=== PATIENT | female | born 1950 | race Caucasian/White ===

== ENCOUNTER 2020-04-14 09:03 | Day surgery (SDC) | payer MEDICARE, OTHER ==
[~2020-04-14] VITALS: Ht 167.6 cm; Wt 105.7 kg
[~2020-04-14 09:03] MED LIST: ADVIL200 MG PO; B COMPLEX1 EACH PO; BIOTIN5 MG PO; BOSWELLIA SERRAT1 GM MISC; CALCIUM600 MG PO; CARVEDILOL12.5 MG PO; DOXYCYCLINE HY100 MG PO; L-LYSINE500 M2 PO; LEVOTHYROXINE88 MCG PO; PEPCID20 MG PO; VITA-C120 GM PO; VITAMIN D325 MC3 PO
--- NOTE | 2020-04-14 11:00 | NUR ---
04/14/20 1100 Jessica Jenkins 1056-PATIENT ARRIVED TO PACU ON 2L NC AWAKE RR EVEN. DENIES PAIN OR NAUSEA. PASSING GAS. ABDOMEN SOFT LAYING LEFT LATERAL. IVF INFUSING.
--- NOTE | 2020-04-15 08:10 | OR ---
[facility] [address] [place], [place] [address] Signed DATE OF OPERATION: 04/14/2020 SURGEON: Venancio Estevez MD PREOPERATIVE DIAGNOSES: 1. Father with colonic polyps, age 55. 2. Brother with colonic polyps in his late 50s or early 60s. 3. A great-niece with rectal cancer, age 20. POSTOPERATIVE DIAGNOSES: 1. A 4 mm polyp at 20 cm. 2. Minimal sigmoid diverticulosis. 3. Minimal internal hemorrhoids. PROCEDURE: Colonoscopy without biopsy. ESTIMATED BLOOD LOSS: None. INDICATIONS: Isaac is a 70-year-old female asked to see me for a followup colonoscopy. She spoke of a negative colonoscopy back at age 51. She mentioned her dad had colonic polyps around age 55. A brother had colonic polyps removed somewhere in his late 50s or early 60s. She talked about her sister's granddaughter having rectal cancer at age 20. This would be her great niece. In the meantime, Isaac has no lower GI complaints. In the office, I gave her a pamphlet on colonoscopy and we looked at that together in detail. She understands the nature of the test along with the risks including, but not limited to gas bloating, crampy abdominal pain, bleeding, perforation requiring surgery, and missed diagnosis. She also understands the need for IV conscious sedation, she had expressed understanding and wished to proceed. DESCRIPTION OF PROCEDURE: Isaac was taken into our endoscopy suite and placed in the left lateral decubitus position. She was given IV sedation with 5 mg of Versed and 150 mcg of fentanyl. A digital rectal exam was performed and this was unremarkable. The adult colonoscope was introduced and advanced all around into the cecum under direct visualization of camera without difficulty. Her prep was good. We could easily see the appendiceal orifice and the ileocecal valve. The scope was slowly withdrawn. She had a few diverticula in the sigmoid colon. They were small to moderate in size, few in number, and scattered about. Electronically Signed By: VENANCIO ESTEVEZ MD 04/15/20 0810 PATIENT NAME: ISAAC CARRASQUILLO OPERATIVE REPORT DATE OF : 52 REPORT #: [id number] PHYSICIAN: VENANCIO ESTEVEZ MD PCP: DEBBIE MESA MD REPORT IS CONFIDENTIAL AND NOT TO BE RELEASED WITHOUT AUTHORIZATION [facility] [address] [place], [place] [address] Signed We saw a polypoid lesion at around 22 cm. It was easily removed with hot biopsy forceps. Upon retroflexion of scope, she has some very tiny internal hemorrhoid tissue. After this, the gas was suctioned out and the colonoscope removed. Isaac tolerated the procedure quite well. RECOMMENDATIONS: I will see Isaac back in my office in 7 to 14 days to review her results. She can withhold aspirin and NSAIDs for 1 week. She can resume her other chronic medications today. She will stay on the 5-year rotation given her family. Venancio Estevez MD ALB/MODL /[id number] cc: MD Debbie Anglin MD Copies: VENANCIO ESTEVEZ MD, JONATHAN MD ~ Electronically Signed By: VENANCIO ESTEVEZ MD 04/15/20 0810 PATIENT NAME: ISAAC CARRASQUILLO RADU OPERATIVE REPORT DATE OF : 52 REPORT #: [id number] PHYSICIAN: VENANCIO ESTEVEZ MD PCP: DEBBIE MESA MD REPORT IS CONFIDENTIAL AND NOT TO BE RELEASED WITHOUT AUTHORIZATION
--- NOTE | 2020-04-16 13:35 | PATH ---
[facility] [address] [place], [place] [address] Signed SPECIMEN(S): A COLON POLYP AT 22 CM SPECIMEN SOURCE: A. COLON POLYP AT 22 CM CLINICAL HISTORY: Family history colon polyps. MICROSCOPIC DESCRIPTION: Histologic sections of all submitted blocks are examined by light microscopy. These findings, together with the gross examination, support the pathologic diagnosis. FINAL PATHOLOGIC DIAGNOSIS: Colon polyp at 22 cm: - Tubular adenoma (one fragment). JVR:emb:C2NR GROSS DESCRIPTION: The specimen, labeled "CM, 1," and designated on the requisition "colon polyp at 22 cm," is received in formalin and consists of two gaytan soft tissue fragment(s) that measure 0.2 cm in greatest dimension. The specimen is entirely submitted in cassette (A1). AT (under the direct supervision of a pathologist) The Gross Description was prepared using a voice recognition system. The report was reviewed for accuracy; however, sound-alike word errors, addition and/or deletions may occur. If there is any question about this report, please contact Client Services. PERFORMING LABORATORY: The technical component was performed by [facility], [address] [place] [address] (Hooker Machine Tender: Sophia Carroll MD; CLIA# [id number]). Professional interpretation [place] [address] (Hooker Machine Tender: Kyle Strickland M.D.). Diagnostician: Kyle Strickland MD Pathologist Electronically Signed 04/16/2020 Copies: PATIENT NAME: ISAAC CARRASQUILLO RADU PATHOLOGY DATE OF : 52 REPORT #: [id number] PHYSICIAN: [facility] PCP: DEBBIE MESA MD REPORT IS CONFIDENTIAL AND NOT TO BE RELEASED WITHOUT AUTHORIZATION [address] [place], [place] [address] Signed ~ PATIENT NAME: ISAAC CARRSAQUILLO RADU PATHOLOGY DATE OF : 52 REPORT #: [id number] PHYSICIAN: [facility] PCP: DEBBIE MESA MD REPORT IS CONFIDENTIAL AND NOT TO BE RELEASED WITHOUT AUTHORIZATION
== END 2020-04-14 11:40 | disposition home or self-care (01) ==
LOC: OPS 09:03 → DS 09:12 → OPS 10:00
PROVIDERS: Colon & Rectal Surgery
PROC: 0DBE8ZZ Excision of Large Intestine, Via Natural or Artificial Opening Endoscopic (ICD-10-PCS; principal; 2020-04-14 10:30)
DX: Z12.11 Encounter for screening for malignant neoplasm of colon (principal); D12.6 Benign neoplasm of colon, unspecified; K64.8 Other hemorrhoids; K57.30 Diverticulosis of large intestine without perforation or abscess without bleeding; Z83.71 Family history of colonic polyps
CPT/HCPCS: 88305; 99153; G0500; J2250; J3010; J7121

== ENCOUNTER 2022-05-02 08:37 | Emergency (ER) | payer MEDICARE, OTHER ==
[~2022-05-02] VITALS: Ht 167.6 cm; Wt 106.6 kg
[~2022-05-02 08:37] MED LIST changes: +ACETAMINOPHEN325 M1 PO; +ASPIRIN EC325 MG PO; +BIOTIN1 MG PO; +CALCIUM 500-VI1 EAC1 PO; +CELECOXIB200 MG PO; +COLLAGEN PLUS1 EACH PO; +CORICIDIN HBP PO; +GABAPENTIN300 MG PO; +IRON325 M1 PO; +MAGNESIUM250 M1 PO; +MILK THISTLE175 M3 PO; +OXYCODONE HCL5 MG PO; +SENNA LAX8.6 MG PO; +TRIAMCINOLONE A15 G1 TOP; +VITAMIN B COMP1 EACH PO; +VITAMIN C500 M5 PO; +VITAMIN D3 COM1 EACH PO; +XARELTO10 MG PO; +[UNRECOGNIZED DRUG - OTHER] PO
--- OUTSIDE RECORDS SUMMARY | 2022-05-02 08:40 | XMS ---
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 ESandy VISIT COUNT (12 MO.) 1 SYDNI [facility] TOTAL 1 NOTE: Visits indicate total known visits. ED/UCC VISIT TRACKING (12 MO.) 05/02/2022 08:38 [facility] [place] TYPE: Emergency COMPLAINT: - R CARCAMO WOUND INPATIENT VISIT TRACKING (12 MO.) No inpatient visits to display in this time frame [email or web address]
[2022-05-02] MEDS ORDERED: BACTRIM DS TAB1 EACH PO (10:01)
== END 2022-05-02 10:14 | disposition home or self-care (01) ==
LOC: ED 08:37
DX: S81.801A Unspecified open wound, right lower leg, initial encounter (principal); L02.415 Cutaneous abscess of right lower limb; I10 Essential (primary) hypertension; E78.5 Hyperlipidemia, unspecified; Z87.891 Personal history of nicotine dependence; Z79.899 Other long term (current) drug therapy; X58.XXXA Exposure to other specified factors, initial encounter
CPT/HCPCS: 73590; 99283-25